=== PATIENT | female | born 1945 | race African-American/Black ===

== ENCOUNTER 2019-07-21 12:43 | Inpatient (IN) | payer MEDICARE, MEDICAID ==
[~2019-07-21] VITALS: Ht 160 cm; Wt 68.5 kg
[2019-07-21] MEDS ORDERED: SODIUM CHLORIDE 0.9% 1,000 ML IV ONE (14:57)
[2019-07-21] MEDS ORDERED: PIPERACILLIN/TAZ 3.375G PREMIX 50 ML IV ONE (15:00)
[2019-07-21] MEDS ORDERED: VANCOMYCIN 1 G PREMIX 200 ML IV ONE (15:00)
[2019-07-21 15:25] LABS: BASOPHILS % 1.7 % (0.0-2.0); EOSINOPHILS % 1.6 % (0.0-5.0); HEMATOCRIT. 35.9 % (36.0-48.0); HEMOGLOBIN. 11.8 g/dL (12.0-16.0); LYMPHOCYTES % 43.9 % (20.0-50.0); MEAN CORPUSCULAR HEMOGLOBIN 30.5 pg (28.0-32.0); MEAN CORPUSCULAR VOLUME 92.9 fL (81.0-99.0); MEAN PLATELET VOLUME 10.7 fl (7.4-10.4); MONOCYTES % 3.5 % (2.0-8.0); NEUTROPHILS % 49.3 % (40.0-76.0); PLATELET 253 x1000/uL (130-400); RED BLOOD CELL COUNT 3.87 mill/uL (4.2-5.4); RED CELL DISTRIBUTION WIDTH 15.5 % (11.6-14.6)
[2019-07-21 15:28] LABS: CLARITY URINE CLOUDY (CLEAR); COLOR URINE DARK YELLOW (YELLOW); KETONES URINE NEGATIVE (NEGATIVE); LEUKOCYTE ESTERASE URINE TRACE (NEGATIVE); NITRITE URINE POSITIVE (NEGATIVE); OCCULT BLOOD URINE NEGATIVE (NEGATIVE); PH URINE 5.5 (4.5-8.0); PROTEIN URINE 1+ (NEGATIVE); SPECIFIC GRAVITY URINE 1.037 (1.005-1.030)
[2019-07-21 15:34] LABS: CHLORIDE 102 mEq/L (98-107)
[2019-07-21 15:53] LABS: PROTHROMBIN TIME 10.4 sec (9.6-11.0)
[2019-07-21] MEDS ORDERED: POTASSIUM CHLORIDE 20MEQ TABLET SR PO ONE (18:15)
[2019-07-21] MEDS ORDERED: MAGNESIUM/ALUMINUM HYDROXIDE/SIMETHICONE 30ML UDC PO PRN (19:00)
[2019-07-21] MEDS ORDERED: CLONIDINE 0.1MG TABLET PO PRN (19:00)
[2019-07-21] MEDS ORDERED: ONDANSETRON HCL 4MG/2ML INJ IV PRN (19:00)
[2019-07-21] MEDS ORDERED: GUAIFENESIN 200MG/10ML SUGAR FREE UDC PO PRN (19:00)
[2019-07-21] MEDS ORDERED: DOCUSATE SODIUM 100MG CAPSULE PO PRN (19:00)
[2019-07-21] MEDS ORDERED: ACETAMINOPHEN 325MG TABLET PO PRN (19:00)
[2019-07-21] MEDS ORDERED: HYDROCODONE/ACETAMINOPHEN 5/325MG TABLET PO PRN (19:00)
[2019-07-21] MEDS ORDERED: PIPERACILLIN/TAZ 3.375G PREMIX 50 ML IV SCH (19:00)
[2019-07-21 19:50] VITALS: BP 140/71
[2019-07-21] MEDS: ENOXAPARIN 40MG/0.4ML SYR SUBCUT SCH (21:00)
[2019-07-21] MEDS: MORPHINE SULFATE 2 MG/ML CPJ (NOT FOR IM USE) IV PRN (22:19)
[2019-07-21] MEDS: PIPERACILLIN/TAZOBACTAM 3.375 G in DEXT 5% WATER 100 ML IV SCH (22:26)
[2019-07-22] VITALS: BP 120/62
[2019-07-22] MEDS ORDERED: TOPUD MT (00:06)
[2019-07-22 04:00] VITALS: BP 141/78
[2019-07-22] MEDS: PIPERACILLIN/TAZOBACTAM 3.375 G in DEXT 5% WATER 100 ML IV SCH ×3 (05:18→21:13)
[2019-07-22 06:48] LABS: BASOPHILS % 0.6 % (0.0-2.0); HEMATOCRIT. 30.6 % (36.0-48.0); HEMOGLOBIN. 10.2 g/dL (12.0-16.0); LYMPHOCYTES % 38.6 % (20.0-50.0); MEAN CORPUSCULAR HEMOGLOBIN 30.5 pg (28.0-32.0); MEAN CORPUSCULAR VOLUME 91.7 fL (81.0-99.0); MEAN PLATELET VOLUME 10.3 fl (7.4-10.4); MONOCYTES % 6.9 % (2.0-8.0); NEUTROPHILS % 50.9 % (40.0-76.0); PLATELET 215 x1000/uL (130-400); RED BLOOD CELL COUNT 3.34 mill/uL (4.2-5.4); RED CELL DISTRIBUTION WIDTH 15.8 % (11.6-14.6)
[2019-07-22 06:51] LABS: CHLORIDE 108 mEq/L (98-107)
[2019-07-22 08:35] VITALS: BP 127/68
[2019-07-22] MEDS: MULTIVITAMINS,THER W-MINERALS TABLET PO SCH (09:38)
[2019-07-22] MEDS: CLOPIDOGREL 75MG TABLET PO SCH (09:38)
[2019-07-22] MEDS: VANCOMYCIN 750 MG PREMIX 150 ML IV SCH (09:40)
[2019-07-22] MEDS: AMLODIPINE 10MG TABLET PO SCH (09:40)
[2019-07-22 12:16] VITALS: BP 135/63
[2019-07-22] MEDS ORDERED: MECL-109 PO (15:53)
[2019-07-22] MEDS ORDERED: AMLO2.5T45 PO (15:53)
[2019-07-22] MEDS ORDERED: DIAZ10TA4 MT (15:53)
[2019-07-22] MEDS ORDERED: ASPI-1393 MT (15:53)
[2019-07-22] MEDS ORDERED: OLME20TA22 MT (15:53)
[2019-07-22] MEDS ORDERED: FLUO-123 MT (15:53)
[2019-07-22] MEDS ORDERED: AZAT50TA24 PO (15:53)
[2019-07-22] MEDS ORDERED: FOLI-43 MT (15:53)
[2019-07-22] MEDS ORDERED: METH4TAB MT (15:53)
[2019-07-22] MEDS ORDERED: HYDR200T35 MT (15:53)
[2019-07-22] MEDS ORDERED: LANS15CA17 PO (15:53)
[2019-07-22] MEDS ORDERED: ALBU18HF2 IH (15:53)
[2019-07-22] MEDS ORDERED: POTA15TA11 PO (15:53)
[2019-07-22 16:00] VITALS: BP 110/47
[2019-07-22] MEDS: MORPHINE SULFATE 2 MG/ML CPJ (NOT FOR IM USE) IV PRN (16:42)
[2019-07-22 20:00] VITALS: BP 115/81
[2019-07-22] MEDS: ATORVASTATIN CALCIUM 20MG TABLET PO SCH (21:12)
[2019-07-22] MEDS: ENOXAPARIN 40MG/0.4ML SYR SUBCUT SCH (21:12)
[2019-07-23] VITALS: BP 113/71
[2019-07-23] MEDS: MORPHINE SULFATE 2 MG/ML CPJ (NOT FOR IM USE) IV PRN ×2 (02:09→15:08)
[2019-07-23 04:00] VITALS: BP 130/69
[2019-07-23] MEDS: VANCOMYCIN 750 MG PREMIX 150 ML IV SCH ×2 (04:56→22:19)
[2019-07-23] MEDS: PIPERACILLIN/TAZOBACTAM 3.375 G in DEXT 5% WATER 100 ML IV SCH ×3 (05:49→22:19)
[2019-07-23 08:00] VITALS: BP 140/72
[2019-07-23] MEDS: AMLODIPINE 10MG TABLET PO SCH (09:17)
[2019-07-23] MEDS: CLOPIDOGREL 75MG TABLET PO SCH (09:17)
[2019-07-23] MEDS: MULTIVITAMINS,THER W-MINERALS TABLET PO SCH (09:17)
[2019-07-23 12:00] VITALS: BP 137/71
[2019-07-23 16:00] VITALS: BP 132/75
[2019-07-23 20:00] VITALS: BP 125/73
[2019-07-23] MEDS: ENOXAPARIN 40MG/0.4ML SYR SUBCUT SCH (20:48)
[2019-07-23] MEDS: ATORVASTATIN CALCIUM 20MG TABLET PO SCH (20:48)
[2019-07-24] VITALS: BP 148/82
[2019-07-24 04:00] VITALS: BP 148/80
[2019-07-24] MEDS: PIPERACILLIN/TAZOBACTAM 3.375 G in DEXT 5% WATER 100 ML IV SCH ×2 (05:59→13:42)
[2019-07-24 08:00] VITALS: BP 137/71
[2019-07-24] MEDS: MULTIVITAMINS,THER W-MINERALS TABLET PO SCH (08:41)
[2019-07-24] MEDS: AMLODIPINE 10MG TABLET PO SCH (08:42)
[2019-07-24] MEDS: CLOPIDOGREL 75MG TABLET PO SCH (08:43)
[2019-07-24 08:44] LABS: CHLORIDE 106 mEq/L (98-107)
[2019-07-24] MEDS: MORPHINE SULFATE 2 MG/ML CPJ (NOT FOR IM USE) IV PRN (11:27)
[2019-07-24 12:00] VITALS: BP 138/73
[2019-07-24] MEDS ORDERED: SULF1TAB47 MT (12:08)
[2019-07-24] MEDS ORDERED: VANCOMYCIN 750 MG PREMIX 150 ML IV SCH (13:00)
[2019-07-24 13:10] VITALS: BP 121/68
== END 2019-07-24 15:26 | disposition home health service (06) | DRG 570 ==
LOC: ER 12:43 → 8WST 16:06 → EDBEDREQ 16:11 → ENRESERV 17:32 → 6EST 07-23 01:57
PROVIDERS: ADMIT Hospitalist; ATTEND Hospitalist
PROC: 0JBP0ZZ Excision of Left Lower Leg Subcutaneous Tissue and Fascia, Open Approach (ICD-10-PCS; principal; 2019-07-24)
DX: L03.116 Cellulitis of left lower limb (principal); E43 Unspecified severe protein-calorie malnutrition; L97.929 Non-pressure chronic ulcer of unspecified part of left lower leg with unspecified severity; N39.0 Urinary tract infection, site not specified; R47.01 Aphasia; I69.351 Hemiplegia and hemiparesis following cerebral infarction affecting right dominant side; I10 Essential (primary) hypertension; M32.9 Systemic lupus erythematosus, unspecified; R26.9 Unspecified abnormalities of gait and mobility; S81.812A Laceration without foreign body, left lower leg, initial encounter; W01.0XXA Fall on same level from slipping, tripping and stumbling without subsequent striking against object, initial encounter; Y93.89 Activity, other specified; Y92.89 Other specified places as the place of occurrence of the external cause; Y99.8 Other external cause status; Z87.891 Personal history of nicotine dependence; Z68.26 Body mass index [BMI] 26.0-26.9, adult; Z79.899 Other long term (current) drug therapy; Z79.82 Long term (current) use of aspirin
CPT/HCPCS: 36415; 71045; 73590; 73630; 80048; 80202; 81003; 83605; 84145; 84484; 93005; 93971; 96365; 99285; J1650; J2270; J2543; J3370; J7030; J7040; J7060

== ENCOUNTER 2023-10-25 18:18 | Inpatient (IN) | payer MEDICARE, MEDICAID ==
[~2023-10-25] VITALS: Ht 160 cm; Wt 73.5 kg
[~2023-10-25 18:18] MED LIST: ALBU18HF2 IH; AMLO2.5T45 PO; ASPI-1497 MT; AZAT50TA24 PO; DIAZ10TA4 MT; FLUO10CA28 MT; FOLI-43 MT; HYDR200T35 MT; LANS15CA17 PO; MECL-299 PO; METH4TAB MT; OLME20TA68 MT; POTA15TA11 PO; SULF1TAB47 MT; TOPUD MT
[2023-10-25 18:29] VITALS: RESP 35
[2023-10-25 18:37] LABS: HEMATOCRIT. 37.2 % (36.0-48.0); HEMOGLOBIN. 11.7 g/dL (12.0-16.0); MEAN CORPUSCULAR HEMOGLOBIN 31.9 pg (28.0-32.0); MEAN CORPUSCULAR HGB CONC 31.5 g/dL (31.0-37.0); MEAN CORPUSCULAR VOLUME 101.2 fL (81.0-99.0); RED BLOOD CELL COUNT 3.67 mill/uL (4.2-5.4); RED CELL DISTRIBUTION WIDTH 25.8 % (11.6-14.6); WHITE BLOOD COUNT 24.4 x1000/uL (4.5-11.0)
[2023-10-25 18:45] LABS: DIFFERENTIAL COMMENT 1
[2023-10-25 18:52] LABS: ALANINE AMINOTRANSFERASE 83 IU/L (10-49); ALBUMIN 4.3 g/dL (3.2-4.8); ASPARTATE AMINOTRANSFERASE 150 IU/L (<34); BILIRUBIN TOTAL 1.5 mg/dL (0.1-1.0); CALCIUM 8.6 mg/dL (8.7-10.4); CARBON DIOXIDE 21 mEq/L (21-32); CHLORIDE 100 mEq/L (98-107); CREATININE 1.3 mg/dL (0.6-1.0); GLUCOSE 94 mg/dL (70-105); PROTEIN TOTAL 7.9 g/dL (6.0-8.3); SODIUM 139 mEq/L (136-145); UREA NITROGEN BLOOD 24 mg/dL (9-23)
[2023-10-25 18:53] LABS: INR 1.2; PROTHROMBIN TIME 12.8 sec (9.6-11.0)
[2023-10-25 18:56] LABS: LACTIC ACID 8.6 mmol/L (0.4-2.0)
[2023-10-25 18:57] LABS: MEAN PLATELET VOLUME 11.6 fl (7.4-10.4); PLATELET 120 x1000/uL (130-400)
[2023-10-25 18:59] LABS: ANISOCYTOSIS 3+; NUCLEATED RED BLOOD CELLS 2 /100 WBC; PLATELET ESTIMATE DECREASED; TROPONIN I HIGH SENSITIVITY 2126 ng/L (3.0-34)
[2023-10-25] MEDS ORDERED: HEPARIN 25,000 UNITS PREMIX 250 ML IV ONE (19:15)
[2023-10-25] MEDS: CEFTRIAXONE 2GM/50ML 50 ML IV ONE (19:15)
[2023-10-25] MEDS: SODIUM CHLORIDE 0.9% 500 ML IV ONE (19:45)
[2023-10-25 20:06] LABS: BG BASE EXCESS -1.7 mmol/L (-2.0-2.0); BG CARBOXYHEMOGLOBIN 0.3 % (0.5-1.5); BG DEOXYHEMOGLOBIN 0.9 % (0.0-5.0); BG FRACTION INSPIRED OXYGEN 60; BG HCO3 ACT 22.8 mmol/L (22.0-26.0); BG METHEMOGLOBIN 0.7 % (0.0-1.5); BG OXYGEN SATURATION 99.1 % (92.0-98.5); BG OXYHEMOGLOBIN 98.1 % (94.0-97.0); BG PCO2 37.6 mmHg (35.0-45.0); BG PH 7.401 (7.350-7.450); BG PO2 197.1 mmHg (75.0-100.0); BG SAMPLE SITE LEFT RADIAL; BG TOTAL HEMOGLOBIN 11.1 g/dL (12.0-18.0); BG VENT MODE MASK - BIPAP
[2023-10-25] MEDS ORDERED: ACETYLCYSTEINE 100MG/ML 10% VIAL 4ML INH NR (20:15)
[2023-10-25] MEDS ORDERED: VANCOMYCIN 1G PREMIX 200 ML IV SCH (20:15)
[2023-10-25] MEDS ORDERED: DEXTROSE 50% WATER 50ML SYRINGE IV PRN (20:15)
[2023-10-25] MEDS ORDERED: NA PHOS,M-B/NA PHOS,DI-BA ENEMA 118ML PR PRN (20:15)
[2023-10-25] MEDS ORDERED: GUAIFENESIN 200MG/10ML SUGAR FREE UDC PO PRN (20:15)
[2023-10-25] MEDS ORDERED: DOCUSATE SODIUM 100MG CAPSULE PO PRN (20:15)
[2023-10-25] MEDS ORDERED: ACETAMINOPHEN 325MG TABLET PO PRN (20:15)
[2023-10-25 20:46] VITALS: RESP 34
[2023-10-25 21:01] LABS: TROPONIN I HIGH SENSITIVITY 3197 ng/L (3.0-34)
[2023-10-25 21:10] LABS: IRON 19 ug/dL (50-170); PHOSPHORUS 4.4 mg/dL (2.5-4.9); TOTAL IRON BINDING CAPACITY 308 ug/dl (250-425)
[2023-10-25] MEDS: HEPARIN 5000 UNITS/ML VIAL IV ONE (21:17)
[2023-10-25] MEDS: HEPARIN 25,000 UNITS PREMIX 250 ML IV SCH (21:33)
[2023-10-25] MEDS: AZITHROMYCIN 500MG/250ML 250 ML IV ONE (21:47)
[2023-10-25] MEDS: HEPARIN 60 UNITS/KG BOLUS IV SCH (21:50)
[2023-10-25 21:52] LABS: FERRITIN 942 ng/mL (10-291); FOLIC ACID (FOLATE) SERUM > 20.00 ng/mL (>5.38); VITAMIN B12 SERUM 832 pg/mL (211-911)
[2023-10-25 22:24] LABS: AMMONIA 18 uMol/L (<32)
[2023-10-25 22:30] VITALS: BP 87/59; PULSE 95; RESP 28; TEMP 97.8
[2023-10-25] MEDS ORDERED: SODIUM CHLORIDE 0.9% 500 ML IV ONE (23:00)
[2023-10-25] MEDS: PIPERACILLIN/TAZO 3.375G/50ML 50 ML IV SCH (23:24)
[2023-10-25] MEDS: DEXT 5%/0.9% NACL 1,000 ML IV SCH (23:37)
[2023-10-26] VITALS (19 sets, daily range): BP systolic 102–129; BP diastolic 58–73; PULSE 89–113; RESP 19–35; TEMP 96.5–98.9
[2023-10-26] MEDS: BLOOD SUGAR DIAGNOSTIC STRIP TEST SCH (01:39)
[2023-10-26 01:42] LABS: CREATINE KINASE MB FRACTION 19.7 ng/mL (0.5-3.6)
[2023-10-26] MEDS: IPRATROPIUM/ALBUTEROL 0.5-3(2.5)MG/3ML NEB HHN SCH (02:16)
[2023-10-26] MEDS ORDERED: HEPARIN BOLUS PRN aPTT 30-44 IV (03:30)
[2023-10-26] MEDS ORDERED: HEPARIN BOLUS PRN aPTT <30 IV (03:30)
[2023-10-26] MEDS: MAGNESIUM 2 G PREMIX 50 ML IV NR (03:33)
[2023-10-26 03:57] LABS: HEMOGLOBIN. 10.2 g/dL (12.0-16.0); MEAN CORPUSCULAR HGB CONC 31.7 g/dL (31.0-37.0); MEAN CORPUSCULAR VOLUME 97.7 fL (81.0-99.0); MEAN PLATELET VOLUME 12.6 fl (7.4-10.4); PLATELET 108 x1000/uL (130-400); RED BLOOD CELL COUNT 3.27 mill/uL (4.2-5.4); RED CELL DISTRIBUTION WIDTH 24.8 % (11.6-14.6); WHITE BLOOD COUNT 29.6 x1000/uL (4.5-11.0)
[2023-10-26 03:59] LABS: DIFFERENTIAL COMMENT 1
[2023-10-26 04:34] LABS: PLATELET ESTIMATE NORMAL
[2023-10-26] MEDS: VANCOMYCIN 1.25GM PMX (XELLIA) 250 ML IV NR (04:54)
[2023-10-26] MEDS ORDERED: ACETYLCYSTEINE 100MG/ML 10% VIAL 4ML INH SCH (06:00)
[2023-10-26 06:09] LABS: CREATINE KINASE MB FRACTION 18.7 ng/mL (0.5-3.6)
[2023-10-26 06:11] LABS: ALANINE AMINOTRANSFERASE 81 IU/L (10-49); ALBUMIN 3.6 g/dL (3.2-4.8); ASPARTATE AMINOTRANSFERASE 151 IU/L (<34); BILIRUBIN TOTAL 0.7 mg/dL (0.1-1.0); CALCIUM 7.9 mg/dL (8.7-10.4); CARBON DIOXIDE 28 mEq/L (21-32); CHLORIDE 100 mEq/L (98-107); CHOLESTEROL 75 mg/dL (<200); CREATININE 1.4 mg/dL (0.6-1.0); GLUCOSE 101 mg/dL (70-105); HDL CHOLESTEROL 34 mg/dL (>65); LDL CHOLESTEROL 25 mg/dL (5-100); PROTEIN TOTAL 6.1 g/dL (6.0-8.3); SODIUM 139 mEq/L (136-145); T4 FREE 1.25 ng/dL (0.89-1.76); THYROID STIMULATING HORMONE 1.44 uIU/mL (0.55-4.78); TRIGLYCERIDE 45 mg/dL (0-150); UREA NITROGEN BLOOD 31 mg/dL (9-23)
[2023-10-26] MEDS ORDERED: NITROGLYCERIN 0.4MG TABLET SL SL PRN (07:45)
[2023-10-26] MEDS: PANTOPRAZOLE SODIUM 40 MG/VIAL IV SCH (09:44)
[2023-10-26] MEDS: AMLODIPINE 2.5MG TABLET PO SCH (09:44)
[2023-10-26] MEDS: ASPIRIN 81MG EC TABLET PO SCH (09:44)
[2023-10-26] MEDS: KCL 20MEQ/100ML PREMIX 100 ML IV SCH (10:28)
[2023-10-26 12:20] LABS: CREATINE KINASE MB FRACTION 12.7 ng/mL (0.5-3.6)
[2023-10-26] MEDS ORDERED: AZITHROMYCIN 500MG/250ML 250 ML IV SCH ×2 (18:00→20:00)
[2023-10-26] MEDS: POTASSIUM CHLORIDE 20MEQ/PACKET PO NR (18:05)
[2023-10-26] MEDS ORDERED: INFLUENZA VACCINE 05/PF 0.5 ML SYRINGE IM ONE (21:00)
[2023-10-26] MEDS ORDERED: PNEUMOCOCCAL 23-VAL P-SAC VAC 0.5 ML IM ONE (21:00)
[2023-10-26] MEDS: ATORVASTATIN CALCIUM 40MG TABLET PO SCH (22:18)
[2023-10-27] VITALS (19 sets, daily range): BP systolic 96–144; BP diastolic 52–75; PULSE 90–116; RESP 18–37; TEMP 97.9–99.3; O2SAT 96–97
[2023-10-27] MEDS: BUDESONIDE 0.5MG/2ML NEB HHN SCH (00:42)
[2023-10-27] MEDS: ACETYLCYSTEINE 200MG/ML 20% VIAL 4ML INH SCH (00:43)
[2023-10-27 09:15] LABS: HEMATOCRIT. 28.2 % (36.0-48.0); HEMOGLOBIN. 9.1 g/dL (12.0-16.0); MEAN CORPUSCULAR HEMOGLOBIN 31.3 pg (28.0-32.0); MEAN CORPUSCULAR HGB CONC 32.4 g/dL (31.0-37.0); MEAN CORPUSCULAR VOLUME 96.6 fL (81.0-99.0); RED BLOOD CELL COUNT 2.92 mill/uL (4.2-5.4); RED CELL DISTRIBUTION WIDTH 24.7 % (11.6-14.6); WHITE BLOOD COUNT 19.9 x1000/uL (4.5-11.0)
[2023-10-27] MEDS: VANCOMYCIN 750MG PREMIX 150 ML IV SCH (09:20)
[2023-10-27 09:34] LABS: DIFFERENTIAL COMMENT 1
[2023-10-27 09:45] LABS: CALCIUM 7.4 mg/dL (8.7-10.4); CREATININE 1.1 mg/dL (0.6-1.0); POTASSIUM 3.7 mEq/L (3.5-5.1)
[2023-10-27 10:18] LABS: NUCLEATED RED BLOOD CELLS 1 /100 WBC
[2023-10-27 10:21] LABS: ANISOCYTOSIS 4+
[2023-10-27 10:24] LABS: MEAN PLATELET VOLUME 12.9 fl (7.4-10.4); PLATELET 110 x1000/uL (130-400); PLATELET ESTIMATE DECREASED
[2023-10-27 10:25] LABS: GIANT PLATELETS FEW
[2023-10-27 10:40] LABS: TROPONIN I HIGH SENSITIVITY 1461 ng/L (3.0-34)
[2023-10-27] MEDS: ENOXAPARIN 80MG/0.8ML SYR SUBCUT SCH (12:55)
[2023-10-27] MEDS ORDERED: IOHEXOL-350 100 ML BOTTLE ONE (18:40)
[2023-10-27] MEDS: ACETAMINOPHEN 325MG TABLET PO PRN (19:56)
[2023-10-27] MEDS: ONDANSETRON HCL 4MG/2ML INJ IV PRN (19:56)
[2023-10-27] MEDS: CLONIDINE 0.1MG TABLET PO PRN (19:57)
[2023-10-27] MEDS: CALCIUM GLUCONATE 1GM PREMIX 50 ML IV NR (22:31)
[2023-10-28] VITALS (18 sets, daily range): BP systolic 86–122; BP diastolic 43–79; PULSE 87–98; RESP 18–29; TEMP 98.2–98.8; O2SAT 92–96
[2023-10-28 07:01] LABS: CREATININE 1.2 mg/dL (0.6-1.0); POTASSIUM 4.2 mEq/L (3.5-5.1)
[2023-10-28 07:32] LABS: HEMATOCRIT. 27.6 % (36.0-48.0); HEMOGLOBIN. 8.8 g/dL (12.0-16.0); MEAN CORPUSCULAR HEMOGLOBIN 31.5 pg (28.0-32.0); MEAN CORPUSCULAR HGB CONC 32.1 g/dL (31.0-37.0); MEAN CORPUSCULAR VOLUME 98.1 fL (81.0-99.0); MEAN PLATELET VOLUME 12.5 fl (7.4-10.4); PLATELET 120 x1000/uL (130-400); RED BLOOD CELL COUNT 2.81 mill/uL (4.2-5.4); RED CELL DISTRIBUTION WIDTH 25.5 % (11.6-14.6)
[2023-10-28] MEDS ORDERED: METHYLPREDNISOLONE 4MG TABLET PO SCH (07:45)
[2023-10-28 07:58] LABS: DIFFERENTIAL COMMENT 1
[2023-10-28] MEDS: HYDROXYCHLOROQUINE SULFATE 200MG TABLET PO SCH (09:27)
[2023-10-28] MEDS: FOLIC ACID 1MG TABLET PO SCH (09:27)
[2023-10-28 10:34] LABS: BG BASE EXCESS 2.1 mmol/L (-2.0-2.0); BG CARBOXYHEMOGLOBIN 0.3 % (0.5-1.5); BG DEOXYHEMOGLOBIN 5.1 % (0.0-5.0); BG FRACTION INSPIRED OXYGEN 32; BG HCO3 ACT 27.6 mmol/L (22.0-26.0); BG METHEMOGLOBIN 0.6 % (0.0-1.5); BG OXYGEN SATURATION 94.9 % (92.0-98.5); BG PCO2 47.6 mmHg (35.0-45.0); BG PH 7.381 (7.350-7.450); BG PO2 81.7 mmHg (75.0-100.0); BG SAMPLE SITE LEFT RADIAL; BG TOTAL HEMOGLOBIN 9.3 g/dL (12.0-18.0); BG VENT MODE NASAL CANNULA
[2023-10-28 16:17] LABS: ANISOCYTOSIS 2+; PLATELET ESTIMATE DECREASED
[2023-10-28 21:23] LABS: CLARITY URINE CLEAR (CLEAR); COLOR URINE YELLOW (YELLOW); GLUCOSE URINE NEGATIVE (NEGATIVE); KETONES URINE NEGATIVE (NEGATIVE); LEUKOCYTE ESTERASE URINE NEGATIVE (NEGATIVE); NITRITE URINE NEGATIVE (NEGATIVE); OCCULT BLOOD URINE NEGATIVE (NEGATIVE); PH URINE 5.5 (4.5-8.0); PROTEIN URINE NEGATIVE (NEGATIVE); SPECIFIC GRAVITY URINE 1.017 (1.005-1.030)
[2023-10-28] MEDS: MAGNESIUM/ALUMINUM HYDROXIDE/SIMETHICONE 30ML UDC PO PRN (21:29)
[2023-10-29] VITALS (19 sets, daily range): BP systolic 100–192; BP diastolic 54–103; PULSE 82–98; RESP 19–30; TEMP 97.2–97.8; O2SAT 92–100
[2023-10-29 06:42] LABS: HEMATOCRIT. 28.1 % (36.0-48.0); MEAN CORPUSCULAR HEMOGLOBIN 31.3 pg (28.0-32.0); MEAN CORPUSCULAR HGB CONC 32.1 g/dL (31.0-37.0); MEAN CORPUSCULAR VOLUME 97.3 fL (81.0-99.0); MEAN PLATELET VOLUME 12.1 fl (7.4-10.4); PLATELET 135 x1000/uL (130-400); RED BLOOD CELL COUNT 2.88 mill/uL (4.2-5.4); RED CELL DISTRIBUTION WIDTH 25.4 % (11.6-14.6); WHITE BLOOD COUNT 17.5 x1000/uL (4.5-11.0)
[2023-10-29 07:09] LABS: CALCIUM 7.8 mg/dL (8.7-10.4); CREATININE 1.3 mg/dL (0.6-1.0); POTASSIUM 3.6 mEq/L (3.5-5.1)
[2023-10-29 07:37] LABS: DIFFERENTIAL COMMENT 1
[2023-10-29] MEDS: VANCOMYCIN 1GM/200ML PMX (BAXTER) IV SCH (09:43)
[2023-10-29 11:36] LABS: ERYTHROCYTE SEDIMENTATION RATE 42 mm/hr (0-30)
[2023-10-29 14:49] LABS: PLATELET ESTIMATE NORMAL
[2023-10-29 14:50] LABS: ANISOCYTOSIS 2+
[2023-10-29 17:21] LABS: BG BASE EXCESS 1.1 mmol/L (-2.0-2.0); BG CARBOXYHEMOGLOBIN 0.3 % (0.5-1.5); BG DEOXYHEMOGLOBIN 4.6 % (0.0-5.0); BG FRACTION INSPIRED OXYGEN 40; BG HCO3 ACT 27.7 mmol/L (22.0-26.0); BG METHEMOGLOBIN 0.3 % (0.0-1.5); BG OXYGEN SATURATION 95.4 % (92.0-98.5); BG OXYHEMOGLOBIN 94.8 % (94.0-97.0); BG PCO2 54.2 mmHg (35.0-45.0); BG PH 7.326 (7.350-7.450); BG SAMPLE SITE LEFT RADIAL; BG TOTAL HEMOGLOBIN 10.2 g/dL (12.0-18.0); BG TOTAL RESPIRATORY RATE 24 b/min; BG VENT MODE MASK - BIPAP
[2023-10-29] MEDS: METHYLPREDNISOLONE SOD SUCC 125MG/2ML (ACT-O-VIAL) IV SCH (19:02)
[2023-10-30] VITALS (17 sets, daily range): BP systolic 119–151; BP diastolic 50–77; PULSE 80–101; RESP 14–25; TEMP 97.6–98; O2SAT 98–100
[2023-10-30 07:18] LABS: HEMOGLOBIN. 8.9 g/dL (12.0-16.0); MEAN CORPUSCULAR HEMOGLOBIN 31.1 pg (28.0-32.0); MEAN CORPUSCULAR HGB CONC 31.8 g/dL (31.0-37.0); MEAN CORPUSCULAR VOLUME 97.9 fL (81.0-99.0); MEAN PLATELET VOLUME 11.4 fl (7.4-10.4); PLATELET 130 x1000/uL (130-400); RED BLOOD CELL COUNT 2.86 mill/uL (4.2-5.4); RED CELL DISTRIBUTION WIDTH 25.1 % (11.6-14.6)
[2023-10-30 07:28] LABS: DIFFERENTIAL COMMENT 1
[2023-10-30 07:42] LABS: CALCIUM 7.7 mg/dL (8.7-10.4); CREATININE 1.1 mg/dL (0.6-1.0); POTASSIUM 5.1 mEq/L (3.5-5.1)
[2023-10-30 12:06] LABS: NUCLEATED RED BLOOD CELLS 1 /100 WBC
[2023-10-30 12:07] LABS: ANISOCYTOSIS 4+; PLATELET ESTIMATE NORMAL; TARGET CELLS 1+
[2023-10-31] VITALS (17 sets, daily range): BP systolic 112–166; BP diastolic 60–91; PULSE 85–122; RESP 18–29; TEMP 98–98.8; O2SAT 99
[2023-10-31 07:55] LABS: HEMATOCRIT. 31.2 % (36.0-48.0); HEMOGLOBIN. 9.6 g/dL (12.0-16.0); MEAN CORPUSCULAR HEMOGLOBIN 30.2 pg (28.0-32.0); MEAN CORPUSCULAR HGB CONC 30.8 g/dL (31.0-37.0); MEAN PLATELET VOLUME 12.1 fl (7.4-10.4); PLATELET 159 x1000/uL (130-400); RED BLOOD CELL COUNT 3.19 mill/uL (4.2-5.4); RED CELL DISTRIBUTION WIDTH 25.8 % (11.6-14.6); WHITE BLOOD COUNT 26.9 x1000/uL (4.5-11.0)
[2023-10-31 07:58] LABS: DIFFERENTIAL COMMENT 1
[2023-10-31 08:26] LABS: CARBON DIOXIDE 26 mEq/L (21-32); CHLORIDE 109 mEq/L (98-107); GLUCOSE 143 mg/dL (70-105); POTASSIUM 4.2 mEq/L (3.5-5.1); SODIUM 142 mEq/L (136-145); UREA NITROGEN BLOOD 20 mg/dL (9-23)
[2023-10-31] MEDS: VANCOMYCIN 1GM/200ML PMX (BAXTER) IV SCH (10:15)
[2023-10-31] MEDS: AMLODIPINE 10MG TABLET PO SCH (10:24)
[2023-10-31] MEDS: PIPERACILLIN/TAZO 3.375G/50ML IV SCH (10:30)
[2023-10-31 10:52] LABS: NUCLEATED RED BLOOD CELLS 1 /100 WBC
[2023-10-31 10:53] LABS: ANISOCYTOSIS 2+; PLATELET ESTIMATE NORMAL
[2023-10-31] MEDS: IPRATROPIUM/ALBUTEROL 0.5-3(2.5)MG/3ML NEB HHN SCH (15:17)
[2023-11-01] VITALS (19 sets, daily range): BP systolic 107–140; BP diastolic 56–69; PULSE 74–97; RESP 17–22; TEMP 97.1–99.2; O2SAT 96–100
[2023-11-01 06:51] LABS: HEMATOCRIT. 25.9 % (36.0-48.0); HEMOGLOBIN. 8.2 g/dL (12.0-16.0); MEAN CORPUSCULAR HEMOGLOBIN 30.7 pg (28.0-32.0); MEAN CORPUSCULAR HGB CONC 31.6 g/dL (31.0-37.0); PLATELET 126 x1000/uL (130-400); RED BLOOD CELL COUNT 2.67 mill/uL (4.2-5.4); RED CELL DISTRIBUTION WIDTH 25.3 % (11.6-14.6); WHITE BLOOD COUNT 18.6 x1000/uL (4.5-11.0)
[2023-11-01 07:06] LABS: CALCIUM 7.8 mg/dL (8.7-10.4); CARBON DIOXIDE 29 mEq/L (21-32); CHLORIDE 108 mEq/L (98-107); CREATININE 0.9 mg/dL (0.6-1.0); GLUCOSE 118 mg/dL (70-105); POTASSIUM 4.8 mEq/L (3.5-5.1); SODIUM 141 mEq/L (136-145); UREA NITROGEN BLOOD 23 mg/dL (9-23)
[2023-11-01 07:10] LABS: DIFFERENTIAL COMMENT 1
[2023-11-01] MEDS: BUDESONIDE 0.5MG/2ML NEB HHN SCH (08:37)
[2023-11-01 10:34] LABS: BG BASE EXCESS 3.3 mmol/L (-2.0-2.0); BG CARBOXYHEMOGLOBIN 0.3 % (0.5-1.5); BG DEOXYHEMOGLOBIN 14.3 % (0.0-5.0); BG FRACTION INSPIRED OXYGEN 21; BG HCO3 ACT 27.7 mmol/L (22.0-26.0); BG METHEMOGLOBIN 0.5 % (0.0-1.5); BG OXYGEN SATURATION 85.6 % (92.0-98.5); BG OXYHEMOGLOBIN 84.9 % (94.0-97.0); BG PCO2 41.2 mmHg (35.0-45.0); BG PH 7.445 (7.350-7.450); BG PO2 52.3 mmHg (75.0-100.0); BG SAMPLE SITE LEFT RADIAL; BG TOTAL HEMOGLOBIN 9.7 g/dL (12.0-18.0); BG VENT MODE ROOM AIR
[2023-11-01 14:01] LABS: ANISOCYTOSIS 2+; PLATELET ESTIMATE SLIGHTLY DECREASED
[2023-11-02] VITALS (17 sets, daily range): BP systolic 122–136; BP diastolic 60–91; PULSE 85–98; RESP 17–27; TEMP 97.1–97.9; O2SAT 97–99
[2023-11-02 09:20] LABS: HEMATOCRIT. 27.5 % (36.0-48.0); HEMOGLOBIN. 8.5 g/dL (12.0-16.0); MEAN CORPUSCULAR VOLUME 96.7 fL (81.0-99.0); MEAN PLATELET VOLUME 12.5 fl (7.4-10.4); PLATELET 142 x1000/uL (130-400); RED BLOOD CELL COUNT 2.84 mill/uL (4.2-5.4); RED CELL DISTRIBUTION WIDTH 25.9 % (11.6-14.6); WHITE BLOOD COUNT 15.8 x1000/uL (4.5-11.0)
[2023-11-02 09:31] LABS: DIFFERENTIAL COMMENT 1
[2023-11-02 09:48] LABS: CALCIUM 8.3 mg/dL (8.7-10.4); CARBON DIOXIDE 29 mEq/L (21-32); CHLORIDE 106 mEq/L (98-107); CREATININE 0.9 mg/dL (0.6-1.0); GLUCOSE 131 mg/dL (70-105); POTASSIUM 4.5 mEq/L (3.5-5.1); SODIUM 142 mEq/L (136-145); UREA NITROGEN BLOOD 24 mg/dL (9-23)
[2023-11-02 16:03] LABS: ANISOCYTOSIS 4+; PLATELET ESTIMATE NORMAL
[2023-11-02 16:04] LABS: HYPOCHROMASIA 1+; TARGET CELLS 1+
[2023-11-02] MEDS ORDERED: LIP40 PO (18:59)
[2023-11-02] MEDS ORDERED: AMLO10TA80 PO (18:59)
[2023-11-02] MEDS ORDERED: P20 MT ×2 (19:00)
[2023-11-03] MEDS ORDERED: METHYLPREDNISOLONE SOD SUCC 40MG/ML (ACT-O-VIAL) IV SCH (02:00)
== END 2023-11-02 22:10 | disposition hospice, home (50) | DRG 871 ==
LOC: ER 18:18 → 5EST 19:36 → EDBEDREQ 19:46
PROVIDERS: ADMIT Internal Medicine; ATTEND Internal Medicine
PROC: 5A09357 Assistance with Respiratory Ventilation, Less than 24 Consecutive Hours, Continuous Positive Airway Pressure (ICD-10-PCS; principal; 2023-10-25)
PROC: 5A09357 Assistance with Respiratory Ventilation, Less than 24 Consecutive Hours, Continuous Positive Airway Pressure (ICD-10-PCS; 2023-10-26)
PROC: 5A09357 Assistance with Respiratory Ventilation, Less than 24 Consecutive Hours, Continuous Positive Airway Pressure (ICD-10-PCS; 2023-10-27)
PROC: 5A09357 Assistance with Respiratory Ventilation, Less than 24 Consecutive Hours, Continuous Positive Airway Pressure (ICD-10-PCS; 2023-10-28)
PROC: 5A09357 Assistance with Respiratory Ventilation, Less than 24 Consecutive Hours, Continuous Positive Airway Pressure (ICD-10-PCS; 2023-10-29)
PROC: 5A09357 Assistance with Respiratory Ventilation, Less than 24 Consecutive Hours, Continuous Positive Airway Pressure (ICD-10-PCS; 2023-10-30)
PROC: 5A09357 Assistance with Respiratory Ventilation, Less than 24 Consecutive Hours, Continuous Positive Airway Pressure (ICD-10-PCS; 2023-10-31)
PROC: 5A09357 Assistance with Respiratory Ventilation, Less than 24 Consecutive Hours, Continuous Positive Airway Pressure (ICD-10-PCS; 2023-11-01)
DX: A41.9 Sepsis, unspecified organism (principal); G92.8 Other toxic encephalopathy; J96.01 Acute respiratory failure with hypoxia; J96.02 Acute respiratory failure with hypercapnia; I21.A1 Myocardial infarction type 2; N17.9 Acute kidney failure, unspecified; I69.351 Hemiplegia and hemiparesis following cerebral infarction affecting right dominant side; J84.9 Interstitial pulmonary disease, unspecified; E83.51 Hypocalcemia; Z20.822 Contact with and (suspected) exposure to COVID-19; D69.6 Thrombocytopenia, unspecified; M32.13 Lung involvement in systemic lupus erythematosus; J43.8 Other emphysema; J43.2 Centrilobular emphysema; I50.9 Heart failure, unspecified; I11.0 Hypertensive heart disease with heart failure; D53.9 Nutritional anemia, unspecified; D50.9 Iron deficiency anemia, unspecified; Z99.81 Dependence on supplemental oxygen; E87.6 Hypokalemia; K80.20 Calculus of gallbladder without cholecystitis without obstruction; I25.10 Atherosclerotic heart disease of native coronary artery without angina pectoris; I16.0 Hypertensive urgency; E78.5 Hyperlipidemia, unspecified; J98.4 Other disorders of lung; Z87.891 Personal history of nicotine dependence; Z79.899 Other long term (current) drug therapy; Z51.5 Encounter for palliative care; Z79.82 Long term (current) use of aspirin
CPT/HCPCS: 36415; 36600; 71045; 71275; 76700; 80048; 80053; 80061; 80202; 81003; 82140; 82375; 82550; 82553; 82607; 82728; 82746; 82805; 82962; 83036; 83540; 83550; 83605; 83735; 83880; 84100; 84145; 84439; 84443; 84484; 85025; 85651; 87426; 87804; 90686; 90732; 93005; 93306; 93970; 94640; 94660; 97116; 97163; 97166; 97530; 97535; 99291; C9113; J0456; J0610; J0696; J1644; J1650; J2405; J2543; J2930; J3370; J3475; J3480; J7040; J7608; J7626; Q9967